=== PATIENT | male | born 1985 | race Hispanic/Latino ===

== ENCOUNTER 2018-05-16 11:20 | Emergency (ER) | payer SELFPAY ==
[2018-05-16] MEDS ORDERED: IBUPROFEN 600 MG TABLET ONE (11:58)
== END 2018-05-16 12:05 | disposition home or self-care (01) ==
LOC: EDH 11:20
DX: K08.89 Other specified disorders of teeth and supporting structures (principal); Z72.0 Tobacco use; Z88.2 Allergy status to sulfonamides; Z90.49 Acquired absence of other specified parts of digestive tract